=== PATIENT | female | born 1955 | race Caucasian/White ===

== ENCOUNTER 2019-02-15 13:09 | Inpatient (IN) | payer OTHER ==
[~2019-02-15] VITALS: Ht 167.6 cm; Wt 165.6 kg
[~2019-02-15 13:09] MED LIST: ALBUTEROL2.5 MG/3 M; AVAPRO300 MG; AVAPRO75 MG; CARDURA XL4 MG/BOTTL; ELIQUIS5 MG; GLYBURID METFOR; HYDRALAZINE HCL50 MG; HYDROCHLOROTH12.5 M1; HYDROCHLOROTHIA25 MG; LANTUS100 U/ML; NEURONTIN300 MG; NEURONTIN800 MG; SINGULAIR10 MG
[2019-02-15] MEDS ORDERED: JENTADUETO 2.51 EAC2 PO (13:41)
[2019-02-15] MEDS ORDERED: TAMBOCOR150 MG PO (13:42)
[2019-02-15] MEDS ORDERED: TOPROL XL50 M1 PO (13:42)
--- NOTE | 2019-02-15 13:42 | NUR ---
PTE REFERIDO MEDICO POR EL ,CHICO PTE CON ASMA Y SATURANDO 85%
--- NOTE | 2019-02-15 15:40 | NUR ---
PTE ES EVALUADA POR EL DR. ESPINOZA QUIEN ORDENA TRATAMIENTO MEDICO. RN. Murillo. ESPINOZA EDUCA A PTE SOBRE ORDENES MEDICAS Y REFIERE COMPRENDER. CANALIZA Y REALIZA MUESTRAS DE KATHRYN BAJO MEDIDAS ASEPTICAS Y SON ENVIADAS A LABORATORIO. PTE CON ORDEN DE CANULA NASAL, XRAYS Y TERAPIA RESPIRATORIA. ADMINISTRA MEDICAMENTOS EDY ORDEN MEDICA Y PTE TOLERA. SE MANTIENE EN OBSERVACION POR CAMBIOS.
[2019-02-22] MEDS ORDERED: HYDROCHLOROTHIA25 MG PO (14:04)
[2019-02-22] MEDS ORDERED: FLECAINIDE ACET50 MG PO (14:04)
[2019-02-22] MEDS ORDERED: PREDNISONE 5MG PO (14:04)
[2019-02-22] MEDS ORDERED: LOPRESSOR25 MG PO (14:04)
[2019-02-22] MEDS ORDERED: ELIQUIS5 MG PO (14:04)
[2019-02-22] MEDS ORDERED: CARdura 4MG TABLET PO (14:04)
[2019-02-22] MEDS ORDERED: AVAPRO300 MG PO (14:04)
[2019-02-22] MEDS ORDERED: Lantus 1000 UNITS/10 SUBCUTANEO (14:04)
[2019-02-22] MEDS ORDERED: NeurRONTin 400MG CAP PO (14:04)
[2019-02-22] MEDS ORDERED: PREDNISONE10 MG PO (14:04)
[2019-02-22] MEDS ORDERED: MONTELUKAST SOD10 MG PO (14:04)
[2019-02-22] MEDS ORDERED: JENTADUETO 2.51 EAC2 PO (14:04)
[2019-02-22] MEDS ORDERED: HYDRALAZINE HCL25 MG PO (14:04)
[2019-02-22] MEDS ORDERED: SIMVASTATIN20 MG PO (14:04)
== END 2019-02-22 15:49 | disposition home or self-care (01) | DRG 190 ==
LOC: ER 13:09 → MEDI 21:45 → SEC-K 21:45 → MEDI 02-16 01:02 → MEDJ 02-16 14:19
PROVIDERS: ADMIT Internal Medicine
PROC: BB24ZZZ Computerized Tomography (CT Scan) of Bilateral Lungs (ICD-10-PCS; principal; 2019-02-15)
PROC: B246ZZZ Ultrasonography of Right and Left Heart (ICD-10-PCS; 2019-02-15)
PROC: 4A033R1 Measurement of Arterial Saturation, Peripheral, Percutaneous Approach (ICD-10-PCS; 2019-02-15)
PROC: 3E0F7GC Introduction of Other Therapeutic Substance into Respiratory Tract, Via Natural or Artificial Opening (ICD-10-PCS; 2019-02-15)
PROC: 4A12X4Z Monitoring of Cardiac Electrical Activity, External Approach (ICD-10-PCS; 2019-02-15)
PROC: B54DZZZ Ultrasonography of Bilateral Lower Extremity Veins (ICD-10-PCS; 2019-02-16)
PROC: [UNRECOGNIZED PROCEDURE] (2019-02-16)
DX: J44.1 Chronic obstructive pulmonary disease with (acute) exacerbation (principal); J96.02 Acute respiratory failure with hypercapnia; J96.01 Acute respiratory failure with hypoxia; J45.51 Severe persistent asthma with (acute) exacerbation; Z99.11 Dependence on respirator [ventilator] status; J98.11 Atelectasis; I50.32 Chronic diastolic (congestive) heart failure; I48.0 Paroxysmal atrial fibrillation; I08.0 Rheumatic disorders of both mitral and aortic valves; I11.0 Hypertensive heart disease with heart failure; I87.2 Venous insufficiency (chronic) (peripheral); G47.33 Obstructive sleep apnea (adult) (pediatric); E11.65 Type 2 diabetes mellitus with hyperglycemia; E11.40 Type 2 diabetes mellitus with diabetic neuropathy, unspecified; E66.01 Morbid (severe) obesity due to excess calories; Z79.4 Long term (current) use of insulin; Z99.81 Dependence on supplemental oxygen; Z79.01 Long term (current) use of anticoagulants

== ENCOUNTER 2024-01-10 15:24 | Emergency (ER) | payer OTHER ==
[~2024-01-10] VITALS: Ht 167.6 cm; Wt 163.3 kg
[~2024-01-10 15:24] MED LIST changes: +AVAPRO300 MG PO; +CARdura 4MG TABLET PO; +ELIQUIS5 MG PO; +FLECAINIDE ACET50 MG PO; +HYDRALAZINE HCL25 MG PO; +HYDROCHLOROTHIA25 MG PO; +JENTADUETO 2.51 EAC2 PO; +LOPRESSOR25 MG PO; +Lantus 1000 UNITS/10 SUBCUTANEO; +MONTELUKAST SOD10 MG PO; +NeurRONTin 400MG CAP PO; +PREDNISONE 5MG PO; +PREDNISONE10 MG PO; +SIMVASTATIN20 MG PO; +TAMBOCOR150 MG PO; +TOPROL XL50 M1 PO
[2024-01-10 18:27] LABS: HEMATOCRIT 38.5 % (36.0-45.00); HEMOGLOBIN 12.4 g/dL (12.0-15.00); MEAN CELL VOLUME 88.2 fL (80.00-100.00); MEAN CORPUSCULAR HEMOGLOBIN 28.5 pg (27.00-32.0); MEAN CORPUSCULAR HGB CONC 32.3 g/dl (32.0-36.0); PLATELET COUNT 264 K/uL (150-450); RED BLOOD COUNT 4.36 M/uL (4.00-6.00); RED CELL DISTRIBUTION WIDTH 15.2 % (11.5-14.5)
[2024-01-10 18:28] LABS: ABG PH 7.413 (7.35-7.45); ABG pCO2 47.7 mmHg (35-45); BASE EXCESS 4.2 mmol/l; BICARBONATE 29.7 mmol/l (23-25); SaO2 87.4 %; Tco2 31.2 mmol/l
[2024-01-10 18:44] LABS: INR 1.1; PROTHROMBIN TIME 11.9 SECONDS (9.0-11.5)
[2024-01-10 18:47] LABS: CALCIUM 10.2 mg/dL (8.5-10.1); CREATININE SERUM 0.81 mg/dL (0.55-1.02); GFR 70.74; POTASSIUM 3.57 mEq/L (3.5-5.1)
[2024-01-10 18:56] LABS: D DIMER 0.55 MG/L; PARTIAL THROMBOPLASTIN TIME 29.3 SECONDS (22.0-34.0)
[2024-01-10 19:00] LABS: ABG PO2 52.1 mmHg (80-100); allen test SATISFACTORY; o2 28 %; puncture site RADIAL LEFT
[2024-01-10] MEDS ORDERED: INSULIN LISPRO 1,000 UNIT/10 ML UNITS SUBCUTANEO PRN (22:00)
== END 2024-01-11 13:45 | disposition home or self-care (01) ==
LOC: ER 15:25
PROVIDERS: Emergency Medicine
DX: L03.115 Cellulitis of right lower limb (principal); M79.604 Pain in right leg; J44.9 Chronic obstructive pulmonary disease, unspecified; Z20.822 Contact with and (suspected) exposure to COVID-19; I10 Essential (primary) hypertension; E11.9 Type 2 diabetes mellitus without complications; Z79.4 Long term (current) use of insulin